=== PATIENT | male | born 1970 | race Caucasian/White ===

== ENCOUNTER 2019-10-30 16:43 | Emergency (ER) | payer OTHER ==
[2019-10-30 16:47] VITALS: RESP 18
--- NOTE | 2019-10-30 17:06 | ED ---
General Adult HPI - General Chief complaint: Upper Respiratory Infection Stated complaint: SOB Time Seen by Provider: 10/30/19 16:53 Source: patient Mode of arrival: ambulatory Limitations: no limitations - History of Present Illness Initial comments: Patient is a 49-year-old male presenting to the emergency department with a chief complaint of cough. Patient states his symptoms started approximately one week. Patient reports history of asthma and uses a smoker, however patient does not use inhalers. Patient states there is no chest pain or shortness of breath. States the cough is productive in nature with yellow/white sputum production. Patient denies any night sweats or chills. Denies any exposures to known Covid patient. Denies nausea vomiting diarrhea. Denies loss of taste or smell. Denies taking medication to alleviate the symptoms. - Related Data Previous Rx's Medication Instructions Recorded Albuterol Inhaler [Ventolin Hfa 2 puff INHALATION RT-QID PRN #1 10/30/19 Inhaler] inhaler Azithromycin [Zithromax Z-pack] 0 mg PO DIRECTED #1 pack 10/30/19 Guaifenesin/Dextromethorphan 1 each PO BID #30 tab 10/30/19 [Mucinex Dm ER 1,200-60 mg Tab] Allergies Allergy/AdvReac Type Severity Reaction Status Date / Time No Known Allergies Allergy Verified 10/30/19 16:51 Review of Systems ROS Statement: Those systems with pertinent positive or pertinent negative responses have been documented in the HPI. ROS Other: All systems not noted in ROS Statement are negative. Past Medical History History of Any Multi-Drug Resistant Organisms: None Reported Smoking Status: Current every day smoker Past Alcohol Use History: None Reported Past Drug Use History: None Reported General Exam Limitations: no limitations General appearance: alert, in no apparent distress Head exam: Present: atraumatic, normocephalic, normal inspection Eye exam: Present: normal appearance, PERRL, EOMI Pupils: Present: normal accommodation ENT exam: Present: normal exam, normal oropharynx, mucous membranes moist, TM's normal bilaterally, normal external ear exam Neck exam: Present: normal inspection, full ROM. Absent: tenderness Respiratory exam: Present: normal lung sounds bilaterally. Absent: respiratory distress, wheezes, rales, rhonchi, stridor, chest wall tenderness Cardiovascular Exam: Present: regular rate, normal rhythm, normal heart sounds Extremities exam: Present: normal inspection, full ROM. Absent: tenderness Back exam: Present: normal inspection, full ROM. Absent: tenderness Neurological exam: Present: alert, oriented X3 Psychiatric exam: Present: normal affect, normal mood Skin exam: Present: warm, dry, intact, normal color Course Vital Signs 10/30/19 16:45 Temperature 98.9 F Pulse Rate 72 Respiratory 18 Rate Blood Pressure 157/91 O2 Sat by Pulse 98 Oximetry Medical Decision Making - Medical Decision Making Patient is a 49-year-old male presenting to the emergency department with a chief complaint of cough. Symptoms are more for about one week. No chest pain or shortness of breath. On auscultation no signs of any respiratory distress. His vitals are stable. Chest x-ray reveals no acute cardio pulmonary processes. Sclerotic density at the right 6 costovertebral angle likely due to degenerative change. Multilevel spondylosis present in the thoracic spine. Considering his symptoms are not going for approximately one week, patient will be started on azithromycin and an antitussive/mucolytic. Patient will also be discharged with an albuterol inhaler. I counseled the patient for smoking cessation for greater than 3 minutes He was advised to follow with the primary care physician. Return parameters were thoroughly discussed patient is understanding and agreeable. Case discussed physician. Disposition Clinical Impression: Cough, Bronchitis Disposition: HOME SELF-CARE Condition: Stable Instructions (If sedation given, give patient instructions): Acute Bronchitis (ED) Additional Instructions: Take prescribed medication as directed. Follow with the primary care physician. Return to emergency department if symptoms worsen. Stop smoking. Prescriptions: Guaifenesin/Dextromethorphan [Mucinex Dm ER 1,200-60 mg Tab] 1 each PO BID #30 t ab Albuterol Inhaler [Ventolin Hfa Inhaler] 2 puff INHALATION RT-QID PRN #1 inhaler PRN Reason: Wheezing Azithromycin [Zithromax Z-pack] 0 mg PO DIRECTED #1 pack Is patient prescribed a controlled substance at d/c from ED?: No Referrals: None,Stated [Primary Care Provider] - 1-2 days Time of Disposition: 18:06
--- NOTE | 2019-10-30 17:45 | XR ---
EXAMINATION TYPE: XR chest 2V DATE OF EXAM: 10/30/2019 COMPARISON: NONE HISTORY: Cough and congestion TECHNIQUE: Frontal and lateral views of the chest are obtained. FINDINGS: There is no focal air space opacity, pleural effusion, or pneumothorax seen. The cardiac silhouette size is within normal limits. The osseous structures are intact, sclerotic focus at the right sixth costovertebral angle thought likely due to degenerative change. Multilevel spondylosis pr esent in the thoracic spine. IMPRESSION: No acute cardiopulmonary process. Sclerotic density at the right sixth costovertebral an gle as described.
[2019-10-30 18:42] VITALS: BP 129/97; PULSE 75; TEMP 98.6
== END 2019-10-30 18:39 | disposition home or self-care (01) ==
LOC: EC 16:43
DX: M47.814 Spondylosis without myelopathy or radiculopathy, thoracic region (principal); J40 Bronchitis, not specified as acute or chronic; F17.200 Nicotine dependence, unspecified, uncomplicated
CPT/HCPCS: 71046; 99283

== ENCOUNTER 2020-08-05 11:01 | Emergency (ER) | payer OTHER ==
[2020-08-05 11:06] VITALS: BP 170/87; PULSE 80; RESP 18; TEMP 98.1
[2020-08-05] MEDS ORDERED: IBUPROFEN 600 MG TAB PO STA (11:16)
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
--- NOTE | 2020-08-05 11:48 | XR ---
EXAMINATION TYPE: XR ankle complete LT, XR foot complete LT DATE OF EXAM: 08/05/2020 CLINICAL HISTORY: Injury yesterday with pain TECHNIQUE: Frontal, lateral and oblique images of the left ankle and foot are obtained. COMPARISON: None. FINDINGS: Mild to moderate soft tissue swelling over the lateral malleolus. Small round corticated os sific densities near medial malleolus could reflect intra-articular loose bodies from old trauma. No donor site to suggest acute fracture identified. The ankle mortise appears within normal limits. There is no acute fracture or dislocation evident in the left foot. Flexion in the toes is present. T iny superior and inferior calcaneal spurs. The joint spaces in the left foot are preserved. Overlyin g soft tissue is unremarkable. IMPRESSION: There is no acute fracture or dislocation in the left ankle or foot.
== END 2020-08-05 12:59 | disposition home or self-care (01) ==
LOC: EC 11:01
DX: S93.402A Sprain of unspecified ligament of left ankle, initial encounter (principal); F17.200 Nicotine dependence, unspecified, uncomplicated; Z88.8 Allergy status to other drugs, medicaments and biological substances; W22.8XXA Striking against or struck by other objects, initial encounter
CPT/HCPCS: 99283

== ENCOUNTER 2022-10-17 11:46 | Emergency (ER) | payer OTHER ==
[2022-10-17 12:14] VITALS: BP 136/82; PULSE 60; RESP 18; TEMP 98.8
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
== END 2022-10-17 13:16 | disposition home or self-care (01) ==
LOC: EC 11:46
DX: Z48.817 Encounter for surgical aftercare following surgery on the skin and subcutaneous tissue (principal); Z88.9 Allergy status to unspecified drugs, medicaments and biological substances
CPT/HCPCS: 99282